=== PATIENT | female | born 1945 | race African-American/Black ===

== ENCOUNTER 2022-07-08 21:51 | Emergency (ER) | payer OTHER ==
[~2022-07-08] VITALS: Ht 157.5 cm; Wt 50.0 kg
[2022-07-08] MEDS: SODIUM CHLORIDE 0.9% 1000ML BAG (SEPSIS BOLUS) IV ONE (22:15)
[2022-07-08] MEDS: MORPHINE SULFATE 4 MG/ML CPJ (NOT FOR IM USE) IV ONE (23:29)
[2022-07-08] MEDS: ONDANSETRON HCL 4MG/2ML INJ IV ONE (23:29)
[2022-07-09 00:41] LABS: CHLORIDE 109 mEq/L (98-107)
[2022-07-09 01:26] LABS: HEMATOCRIT. 24.4 % (36.0-48.0); MEAN CORPUSCULAR HEMOGLOBIN 27.1 pg (28.0-32.0); MEAN CORPUSCULAR VOLUME 82.8 fL (81.0-99.0); MEAN PLATELET VOLUME 9.4 fl (7.4-10.4); PLATELET 117 x1000/uL (130-400); RED BLOOD CELL COUNT 2.94 mill/uL (4.2-5.4); RED CELL DISTRIBUTION WIDTH 16.1 % (11.6-14.6)
[2022-07-09 02:11] LABS: PROTHROMBIN TIME 11.2 sec (9.6-11.0)
[2022-07-09 02:51] LABS: CLARITY URINE CLEAR (CLEAR); COLOR URINE YELLOW (YELLOW); KETONES URINE NEGATIVE (NEGATIVE); LEUKOCYTE ESTERASE URINE TRACE (NEGATIVE); NITRITE URINE NEGATIVE (NEGATIVE); OCCULT BLOOD URINE NEGATIVE (NEGATIVE); PH URINE 5.5 (4.5-8.0); PROTEIN URINE NEGATIVE (NEGATIVE)
[2022-07-09 05:11] VITALS: BP 120/62
[2022-07-09 09:50] LABS: PLATELET ESTIMATE SLIGHTLY DECREASED
== END 2022-07-09 05:21 | disposition short-term general hospital (02) ==
LOC: ER 21:51 → CANBEDREQ 07-11 00:56
DX: R55 Syncope and collapse (principal); R11.2 Nausea with vomiting, unspecified; R42 Dizziness and giddiness; Z20.822 Contact with and (suspected) exposure to COVID-19; I10 Essential (primary) hypertension; Z86.73 Personal history of transient ischemic attack (TIA), and cerebral infarction without residual deficits; Z85.9 Personal history of malignant neoplasm, unspecified; D64.9 Anemia, unspecified
CPT/HCPCS: 36415; 71045; 74176; 80053; 81003; 82270; 83605; 83690; 83880; 84145; 84484; 85025; 85610; 87040; 87086; 87426; 87804; 93005; 96361; 96374; 96375; 99285; C9803; J2270; J2405; J7030